=== PATIENT | male | born 1980 | race Caucasian/White ===

== ENCOUNTER 2020-01-21 08:54 | Emergency (ER) | payer SELFPAY ==
[~2020-01-21] VITALS: Ht 180.3 cm; Wt 75.0 kg
[2020-01-21] MEDS ORDERED: ketorolac tromethamine 15mg/ml inj. IM ONE (09:25)
[2020-01-21] MEDS ORDERED: LIDO700A32 TOP (10:29)
[2020-01-21] MEDS ORDERED: IBUP-1984 PO (10:29)
[2020-01-21 10:47] VITALS: BP 121/93
== END 2020-01-21 10:41 | disposition home or self-care (01) ==
LOC: ER 08:57
DX: S00.03XA Contusion of scalp, initial encounter (principal); S50.311A Abrasion of right elbow, initial encounter; S80.212A Abrasion, left knee, initial encounter; S30.810A Abrasion of lower back and pelvis, initial encounter; R07.81 Pleurodynia; R10.12 Left upper quadrant pain; Z79.899 Other long term (current) drug therapy; Y04.8XXA Assault by other bodily force, initial encounter; Y93.89 Activity, other specified; Y92.89 Other specified places as the place of occurrence of the external cause; Y99.8 Other external cause status
CPT/HCPCS: 71101; 96372; 99284; J1885